=== PATIENT | female | born 1940 | race Caucasian/White ===

== ENCOUNTER 2017-03-26 15:20 | Outpatient (CLI) | payer MEDICARE, OTHER | END 2017-03-26 15:21 | disposition home or self-care (01) | LOC: LAB 15:20 | PROVIDERS: ATTEND Nurse Anesthetist, Certified Registered | DX: M65.342 Trigger finger, left ring finger (principal) | CPT/HCPCS: 87640 ==

== ENCOUNTER 2017-03-31 09:38 | Day surgery (SDC) | payer MEDICARE, OTHER ==
[2017-03-31] MEDS ORDERED: ceFAZolin 2 GM/50 ML 50 ML IV ONE (10:13)
[2017-03-31] MEDS ORDERED: LACTATED RINGERS 1,000 ML IV ONE (10:39)
[2017-03-31] MEDS ORDERED: LIDOCAINE-MPF 2% 5 ML VIAL IM ONE (12:00)
[2017-03-31] MEDS ORDERED: PROPOFOL 200 MG/20 ML VIAL IVP ONE (12:00)
[2017-03-31] MEDS ORDERED: MIDAZOLAM 2 MG/2 ML VIAL IVP ONE (12:00)
[2017-03-31] MEDS ORDERED: fentaNYL 100 MCG/2 ML VIAL IVP ONE (12:00)
[2017-03-31] MEDS ORDERED: BUPIVACAINE 0.25% PF 30 ML VIAL SUBQ ONE (12:57)
[2017-03-31 14:09] VITALS: BP 146/51
--- NOTE | 2017-04-15 23:22 | OPERATIVE REPORT ---
DATE OF SURGERY: 03/31/2017 00:00:00 PREOPERATIVE DIAGNOSIS: Left ring finger trigger. POSTOPERATIVE DIAGNOSIS: Left ring finger trigger. PROCEDURE: Left ring finger trigger release. SURGEON: Reed Ogden MD COLLAR TURNER: None. ANESTHESIA: MAC plus local. FINDINGS: Same. COMPLICATIONS: A small skin tear over the fragile skin on the left elbow upon removing the adhesive on the U-shaped drape. This was dressed with a Xeroform and gauze covering. There was minimal blood loss. ESTIMATED BLOOD LOSS: Minimal. TOURNIQUET: Esmarch to the left arm for 12 minutes. SPECIMEN REMOVED AND CULTURES: None. FLUIDS: 600 mL of Lactated Ringer's. CONDITION AT END OF PROCEDURE: Stable. DISPOSITION: PACU, then home. INDICATIONS: This is a patient with a longstanding history of left ring finger triggering. She had previously had a trigger release done on another finger on her other hand and had undergone injection s and did not want to go through any further injections. We elected to bring her to the operating ro om for a short procedure to release the A1 vini on her left ring finger. Options were discussed with the patient, risks and complications were detailed, questions were answer ed, and no guarantees were made. PROCEDURE IN DETAIL: After consent and identification, the patient was brought to the operating room and placed in a supine position on the operating table. After induction of a MAC anesthesia with lo liu anesthetic injected as a digital block to the left ring finger for a total of 10 mL, we used an E smarch bandage to exsanguinate the left upper extremity from the hand to the elbow. The Esmarch band age was rolled back to mid forearm. After an appropriate timeout was conducted, we supinated the lef t hand and extended the left fingers. We mapped out an oblique incision extending from distal radial to proximal ulnar, just proximal to the flexor crease at the metacarpophalangeal joint. The incision was made with a #15 blade scalpel through the skin and subcutaneous fat. Ragnell retrac tors were used to retract the fat. This allowed us to identify the A1 vini. We used a careful swe eping movement with the #15 blade scalpel to transect the A1 vini, just releasing the undersurface of the A1 vini. We explored the tendon sheath and flexed and extended the finger several times to note that there was no further triggering, and no significant cyst was encountered. We irrigated the wound and closed it with a running interlocked 4-0 nylon suture. Xeroform was appli ed to the wound, followed by a fluff, Kerlix, and bulky hand dressing overwrapped with an MARIA T bandage to the left hand. The Esmarch was rolled back to the elbow to release the tourniquet, and the finge rs pinked up nicely. At this point, while attempting to remove the drapes, the adhesive of the U-drape caused a small skin tear superficially to the dermis of the left elbow with a very scant amount of bleeding. We dressed the skin tear with Xeroform gauze and a 4 x 4 with tape. On completion of the procedure, the patient was transferred to the recovery room in good condition, h aving tolerated the procedure well. JOB #: [id number] EXT JOB #:[id number]
== END 2017-03-31 09:39 | disposition home or self-care (01) ==
LOC: SDS 09:38
PROVIDERS: ATTEND Orthopaedic Surgery
PROC: 0LN80ZZ Release Left Hand Tendon, Open Approach (ICD-10-PCS; principal; 2017-03-31 11:15)
DX: M65.342 Trigger finger, left ring finger (principal); E03.9 Hypothyroidism, unspecified; M19.90 Unspecified osteoarthritis, unspecified site; I10 Essential (primary) hypertension; Z87.891 Personal history of nicotine dependence; Z79.82 Long term (current) use of aspirin; Z90.710 Acquired absence of both cervix and uterus; Z96.642 Presence of left artificial hip joint
CPT/HCPCS: 26055; J0690; J7120

== ENCOUNTER 2017-11-11 17:06 | Emergency (ER) | payer MEDICARE, OTHER ==
[2017-11-11 17:18] VITALS: BP 147/78
--- NOTE | 2017-11-11 17:55 | XRAY Report ---
EXAM: RIGHT WRIST RADIOGRAPHY EXAM DATE: 11/11/2017 05:42 PM. CLINICAL HISTORY: Trauma. COMPARISON: None. TECHNIQUE: 4 views. FINDINGS: Bones: Transverse fracture of the distal radius metaphysis without significant malalignment. No defin ite additional fracture. Bones are osteopenic. Irregularity of distal scaphoid is likely degenerative . Joints: Carpal alignment is preserved. 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 Soft Tissues: Mild soft tissue swelling. IMPRESSION: Nondisplaced distal radius fracture. Osteopenia. Irregularity of distal scaphoid is likel y degenerative, less likely a fracture. [facility] Referring Provider Line: [phone] SITE ID: [id number]
--- NOTE | 2017-11-11 18:39 | ED Physician Documentation ---
PD HPI UPPER EXT INJURY - Stated complaint Stated Complaint: R WRIST PAIN - Chief complaint Chief Complaint: Trauma Ext - History obtained from History obtained from: Patient - History of Present Illness Location: Right, Wrist Type of injury: Fall Where injury occurred: Home Timing - onset: Today Timing - duration: Hours Timing - details: Abrupt onset, Still present Improved by: Rest, Immobilization Worsened by: Moving, Palpating Associated symptoms: Swelling. No: Weakness, Numbness, Tingling Similar symptoms before: Has not had sx before Recently seen: Other - Additonal information Additional information: 77-year-old female who went to the dentist today to have her teeth worked on when she got home she took off her coat and she fell in her home. She has injured her right wrist. She states that she is able to flex and extend but has pain with that. She does not have pain in the elbow she does have pain in her shoulder which is was present previously. Review of Systems Constitutional: denies: Fever Eyes: denies: Decreased vision Ears: denies: Ear pain Nose: denies: Congestion Throat: reports: Dental pain / toothache. denies: Sore throat Cardiac: denies: Chest pain / pressure, Palpitations Respiratory: denies: Dyspnea, Cough GI: denies: Abdominal Pain, Nausea, Vomiting : denies: Dysuria, Frequency Skin: denies: Rash Musculoskeletal: reports: Extremity pain, Joint pain, Joint swelling. denies: Neck pain, Back pain PD PAST MEDICAL HISTORY - Past Medical History Cardiovascular: Hypertension Respiratory: None Neuro: None Endocrine/Autoimmune: HyPOthyroidism GI: None POWER SWEEPER OPERATOR: None : None HEENT: Chronic vision loss, Chronic hearing loss Psych: None Musculoskeletal: Osteoarthritis Derm: None - Past Surgical History Past Surgical History: Yes General: Gastric surgery Ortho: Hip replacement, Other /POWER SWEEPER OPERATOR: section, Dilation and currettage, Hysterectomy HEENT: Tonsil/Adenoidectomy - Present Medications Home Medications: Ambulatory Orders Medication Instructions Recorded Confirmed Glucosamine Sulfate Dipot Chlr 2,000 mg ORAL DAILY 02/06/14 11/11/17 [Glucosamine] Levothyroxine [Synthroid] 112 mcg ORAL DAILY 02/06/14 11/11/17 Magnesium Oxide [Magox 400] 400 mg ORAL DAILY 02/06/14 11/11/17 Furosemide [Lasix] 10 mg PO DAILY 04/30/14 11/11/17 Calcium Carbonate/Vitamin D3 600 mg PO DAILY 03/24/16 11/11/17 [Calcium 500-Vit D3 600 Tablet] Ferrous Fumarate 324 mg PO DAILY 03/24/16 11/11/17 Acetaminophen [Tylenol Extra 1,000 mg PO DAILY 03/25/17 11/11/17 Strength] Aspirin [Adult Low Dose Aspirin EC] 81 mg PO DAILY 03/25/17 11/11/17 Naproxen Sodium [Aleve] 2 tab PO BID 03/25/17 11/11/17 [place]-3/Dha/Epa/Fish Oil [Fish Oil 1 cap PO DAILY 03/25/17 11/11/17 1,000 mg Softgel] Propranolol [Inderal] 40 mg PO BID 03/25/17 11/11/17 HYDROcod/ACETAM 5/325 [Hitchins 5/325] 1 - 2 ea PO Q6H PRN #15 tablet 11/11/17 - Allergies Allergies/Adverse Reactions: Allergies Allergy/AdvReac Type Severity Reaction Status Date / Time No Known Drug Allergies Allergy Verified 03/24/16 22:04 - Social History Does the pt smoke?: No Smoking Status: Never smoker Does the pt drink ETOH?: Yes Does the pt have substance abuse?: No - Immunizations Immunizations are current?: Yes PD ED PE NORMAL - Vitals Vital signs reviewed: Yes (hypertensive ) - General General: Alert and oriented X 3, No acute distress, Well developed/nourished - HEENT HEENT: Atraumatic, PERRL, EOMI - Respiratory Respiratory: No respiratory distress - Derm Derm: Normal color, Warm and dry, No rash - Extremities Extremities: No deformity, Other (There is swelling and point tenderness to the dorsum of the right wrist. Flexion and extension is preserved but with pain. distal n/v is intct. ) - Neuro Neuro: Alert and oriented X 3, No motor deficit, No sensory deficit, Normal speech Eye Opening: Spontaneous Motor: Obeys Commands Verbal: Oriented GCS Score: 15 - Psych Psych: Normal mood, Normal affect Results - Vitals Vitals: Vital Signs - 24 hr 11/11/17 17:15 Temperature 36.9 C Heart Rate 65 Respiratory 20 Rate Blood Pressure 147/78 H O2 Saturation 99 Oxygen O2 Source Room air - Rads (name of study) right wrist. Radiology: Prelim report reviewed (Impression: Nondisplaced distal radius fracture. Osteopenia. Irregularity of distal scaphoid is likely degenerative, less likely a fracture.), EMP read indepedently, See rad report Procedures - Splint (location) right wrist Splint applied by: Tech Type of splint: Fiberglass, Volar cock up Other: Patient tolerated well, No complications, Neurovascular intact, Good alignment PD MEDICAL DECISION MAKING - ED course Complexity details: reviewed results, re-evaluated patient, considered differential, d/w patient ED course: 77-year-old female with a nondisplaced radial fracture is placed into a splint will have follow-up with her orthopedic doctor next week. Departure - Departure Disposition: Home, Self Care Clinical Impression: Radius distal fracture Qualifiers: Encounter type: initial encounter Fracture type: closed Fracture morphology: other fracture Laterality: right Qualified Code(s): S52.591A - Other fractures of lower end of right radius, initial encounter for closed fracture Condition: Stable Instructions: ED Fx Colles Wrist No Redu Requ Follow-Up: Radha Randolph MD [Primary Care Provider] - Prescriptions: HYDROcod/ACETAM 5/325 [Hitchins 5/325] 1 - 2 ea PO Q6H PRN #15 tablet PRN Reason: Pain Comments: Follow-up with her orthopedic DrLinden on Friday as planned. You will need a cast placed on this wrist.
[2017-11-11] MEDS ORDERED: HYDROcod/ACETAM 5/325 MG TABLET PO STA (19:06)
== END 2017-11-11 19:09 | disposition home or self-care (01) ==
LOC: ED 17:06
DX: S52.591A Other fractures of lower end of right radius, initial encounter for closed fracture (principal); W19.XXXA Unspecified fall, initial encounter; Y92.009 Unspecified place in unspecified non-institutional (private) residence as the place of occurrence of the external cause; I10 Essential (primary) hypertension; Z79.82 Long term (current) use of aspirin
CPT/HCPCS: 29125; 73110; 99283; A9270

== ENCOUNTER 2018-05-28 08:00 | Outpatient (CLI) | payer MEDICARE, OTHER ==
[2018-05-28 13:00] LABS: BASOPHILS % (AUTO) 0.6 %; EOSINOPHILS # (AUTO) 0.1 10^3/uL (0.0-0.7); EOSINOPHILS % (AUTO) 1.1 %; HGB - HEMOGLOBIN 11.3 g/dL (12.0-16.0); LYMPHOCYTES # (AUTO) 1.4 10^3/uL (1.5-3.5); LYMPHOCYTES % (AUTO) 16.7 %; MEAN CORPUSCULAR HEMOGLOBIN 33.5 pg (27.0-31.0); MEAN CORPUSCULAR HGB CONC 32.4 g/dL (32.0-36.0); MEAN CORPUSCULAR VOLUME 103.2 fL (81.0-99.0); MEAN PLATELET VOLUME 9.7 fL (7.9-10.8); MONOCYTES # (AUTO) 0.7 10^3/uL (0.0-1.0); MONOCYTES % (AUTO) 8.4 %; NEUTROPHILS # (AUTO) 6.1 10^3/uL (1.5-6.6); NEUTROPHILS % (AUTO) 73.2 %; PLT - PLATELET COUNT 289 10^3/uL (130-450); RED BLOOD COUNT 3.38 10^6/uL (4.20-5.40); RED CELL DISTRIBUTION WIDTH 13.6 % (12.0-15.0); WHITE BLOOD COUNT 8.3 x10^3/uL (4.8-10.8)
[2018-05-28 13:19] LABS: ALBUMIN 3.1 g/dL (3.2-5.5); ALBUMIN/GLOBULIN RATIO 0.9 (1.0-2.2); ALKALINE PHOSPHATASE 229 IU/L (42-121); ALT ALANINE AMINOTRANSFERASE 22 IU/L (10-60); AST ASPARTATE AMINOTRANSFERASE 25 IU/L (10-42); BILIRUBIN,TOTAL 0.6 mg/dL (0.2-1.0); BUN - BLOOD UREA NITROGEN 16 mg/dL (6-20); CALCIUM 8.3 mg/dL (8.5-10.3); CARBON DIOXIDE - CO2 23 mmol/L (21-32); CHLORIDE 106 mmol/L (101-111); CHOLESTEROL 162 mg/dL; CREATININE 0.5 mg/dL (0.4-1.0); GFR - MDRD 120 (>89); GLUCOSE 79 mg/dL (70-100); HDL CHOLESTEROL 81 mg/dL; LDL CHOLESTEROL,CALCULATED 62 mg/dL; LDL/HDL RATIO 0.8 (<4.4); SODIUM 136 mmol/L (135-145); TOTAL PROTEIN 6.5 g/dL (6.7-8.2); VLDL CHOLESTEROL 19 mg/dL
== END 2018-05-28 08:01 | disposition home or self-care (01) ==
LOC: LAB.WCP 08:00
PROVIDERS: ATTEND Family Medicine
DX: I10 Essential (primary) hypertension (principal); R74.8 Abnormal levels of other serum enzymes; E78.5 Hyperlipidemia, unspecified; E03.9 Hypothyroidism, unspecified
CPT/HCPCS: 36415; 80053; 80061; 83721; 84443; 85025

== ENCOUNTER 2018-06-04 08:28 | Outpatient (CLI) | payer MEDICARE, OTHER | END 2018-06-04 08:29 | disposition home or self-care (01) | LOC: LAB.WCP 08:28 | PROVIDERS: ATTEND Family Medicine | DX: R74.8 Abnormal levels of other serum enzymes (principal) | CPT/HCPCS: 36415; 84075; 84080 ==

== ENCOUNTER 2018-06-07 21:51 | Emergency (ER) | payer MEDICARE, OTHER ==
--- NOTE | 2018-06-07 22:09 | ED Physician Documentation ---
PD HPI BACK INJURY - Stated complaint Stated Complaint: BACK PX - History obtained from History obtained from: Patient, Family - History of Present Illness Type of injury: Fall Where injury occurred: Home Timing - onset: How many weeks ago (6) Timing - details: Abrupt onset Pain level now: 5 Quality: Pain Improved by: Rest Worsened by: Moving Associated symptoms: No: Fever, Weakness, Numbness, Incontinent of urine, Unable to urinate, Hematuria, Incontinent of stool Contributing factors: No: Anticoagulated Recently seen: Not recently seen - Additional information Additional information: fell 6 weeks ago when she was sitting down in a swivel chair; the chair unexpected swiveled as she was sitting down, causing her to fall to ground on her left side, c/o left lower back pain and left posterior bony pelvis pain. pain had been adequately controlled with aleve and tylenol but this is no longer effective Review of Systems Musculoskeletal: reports: Back pain. denies: Joint pain, Pain with weight bearing Neurologic: denies: Focal weakness, Numbness, Head injury PD PAST MEDICAL HISTORY - Past Medical History Past Medical History: Yes Cardiovascular: Hypertension Respiratory: None Endocrine/Autoimmune: HyPOthyroidism GI: None GEOTECHNICAL ENGINEER: None : None HEENT: Chronic vision loss, Chronic hearing loss Psych: None Musculoskeletal: Osteoarthritis Derm: None - Past Surgical History Past Surgical History: Yes General: Gastric surgery Ortho: Hip replacement, Other /GEOTECHNICAL ENGINEER: section, Dilation and currettage, Hysterectomy HEENT: Tonsil/Adenoidectomy - Present Medications Home Medications: Ambulatory Orders Medication Instructions Recorded Confirmed Glucosamine Sulfate Dipot Chlr 2,000 mg ORAL DAILY 02/06/14 06/07/18 [Glucosamine] Levothyroxine [Synthroid] 175 mcg ORAL DAILY 02/06/14 06/07/18 Magnesium Oxide [Magox 400] 400 mg ORAL DAILY 02/06/14 06/07/18 Furosemide [Lasix] 10 mg PO DAILY 04/30/14 06/07/18 Calcium Carbonate/Vitamin D3 600 mg PO DAILY 03/24/16 06/07/18 [Calcium 500-Vit D3 600 Tablet] Ferrous Fumarate 324 mg PO DAILY 03/24/16 06/07/18 Acetaminophen [Tylenol Extra 1,000 mg PO DAILY 03/25/17 06/07/18 Strength] Aspirin [Adult Low Dose Aspirin EC] 81 mg PO DAILY 03/25/17 06/07/18 Naproxen Sodium [Aleve] 2 tab PO BID 03/25/17 06/07/18 [place]-3/Dha/Epa/Fish Oil [Fish Oil 1 cap PO DAILY 03/25/17 06/07/18 1,000 mg Softgel] Propranolol [Inderal] 40 mg PO BID 03/25/17 06/07/18 oxyCODONE [Roxicodone] 5 - 10 mg PO Q6H PRN #14 tablet 06/07/18 - Allergies Allergies/Adverse Reactions: Allergies Allergy/AdvReac Type Severity Reaction Status Date / Time No Known Drug Allergies Allergy Verified 06/07/18 21:57 - Social History Does the pt smoke?: No Smoking Status: Never smoker Does the pt drink ETOH?: Yes Does the pt have substance abuse?: No - Immunizations Immunizations are current?: Yes PD ED PE NORMAL - Vitals Vital signs reviewed: Yes - General General: Alert and oriented X 3, No acute distress (NAD at rest, pain with movement involving lower back), Well developed/nourished - Back Back: No CVA TTP, No spinal TTP (no midline tenderness. mild left paralumbar tenderness to palpation ) - Derm Derm: Normal color, Warm and dry, No rash - Extremities Extremities: No tenderness to palpate, Normal ROM s pain, No edema - Neuro Neuro: Alert and oriented X 3, No motor deficit, No sensory deficit Results - Vitals Vitals: Vital Signs - 24 hr 06/07/18 06/07/18 21:55 23:33 Temperature 35.8 C L Heart Rate 65 77 Respiratory 18 19 Rate Blood Pressure 172/62 H 191/86 H O2 Saturation 100 98 Oxygen O2 Source Room air - Rads (name of study) pelvis xray Radiology: Prelim report reviewed, See rad report lumbar spine xrays Radiology: Prelim report reviewed, See rad report PD MEDICAL DECISION MAKING - ED course Complexity details: reviewed results, re-evaluated patient, considered differential, d/w patient, d/w family ED course: patient reported good relief with PO oxycodone and was subsequently able to ambulate with walker but without assistance - Sepsis Event Vital Signs: Vital Signs - 24 hr 06/07/18 06/07/18 21:55 23:33 Temperature 35.8 C L Heart Rate 65 77 Respiratory 18 19 Rate Blood Pressure 172/62 H 191/86 H O2 Saturation 100 98 Oxygen O2 Source Room air Departure - Departure Disposition: 01 Home, Self Care Clinical Impression: Low back pain Qualifiers: Chronicity: acute Back pain laterality: left Sciatica presence: without sciat ica Qualified Code(s): M54.5 - Low back pain Condition: Good Instructions: ED Low Back Pain Injury Follow-Up: Radha Randolph MD [Primary Care Provider] - Prescriptions: oxyCODONE [Roxicodone] 5 - 10 mg PO Q6H PRN #14 tablet PRN Reason: Pain Discharge Date/Time: 06/07/18 23:52
[2018-06-07] MEDS ORDERED: oxyCODONE 5 MG TABLET PO STA (22:20)
--- NOTE | 2018-06-07 23:05 | XRAY Report ---
Reason: fall, left low back/pelvis pain Procedure Date: 06/07/2018 Accession Number: [id number] / [id number] Procedure: XR - Pelvis 1 View CPT Code: FULL RESULT: EXAM: PELVIS RADIOGRAPHY EXAM DATE: 06/07/2018 10:51 PM. CLINICAL HISTORY: Fall, left low back/pelvis pain. COMPARISON: HIP 2 VIEW LT 02/06/2014 4:23 PM, LUMBAR SPINE 2 VIEW 06/07/2018 10:31 PM, ABDOMEN ACUTE 04/10/2014 8:05 AM. TECHNIQUE: 1 view. FINDINGS: Bones and Joints: Osteopenia without definite acute pelvic fracture seen. Left hip prosthesis appears unremarkable. Previous right proximal femur fracture repair. No malalignment. Soft Tissues: Normal. No soft tissue swelling. IMPRESSION: 1. Osteopenic pelvis without definite acute displaced fracture. MRI follow-up could be considered if clinically indicated. 2. Post left hip replacement and right proximal femur fracture repair. [facility]
--- NOTE | 2018-06-07 23:07 | XRAY Report ---
Reason: fall, left low back pain Procedure Date: 06/07/2018 Accession Number: [id number] / [id number] Procedure: XR - Lumbar Spine 2 View CPT Code: FULL RESULT: EXAM: LUMBOSACRAL SPINE RADIOGRAPHY EXAM DATE: 06/07/2018 10:51 PM. CLINICAL HISTORY: Fall, left low back pain. COMPARISONS: ABDOMEN ACUTE 04/10/2014 8:05 AM. TECHNIQUE: 2 views. FINDINGS: Alignment: Normal. No spondylolisthesis or scoliosis. Bones: Osteopenic lumbar spine. Multilevel mild to moderate compression deformities, worst at L1, are age indeterminate. These involve likely T12 through L4. No definitive acute fracture seen. Degenerative Changes: Mild diffuse disk level degenerative changes throughout the lumbar spine. Moderate lower lumbar facet DJD. Soft Tissues: Multiple previous abdominal surgeries. Atherosclerotic disease of the aorta. Bowel gas appears unremarkable. IMPRESSION: Multilevel mild to moderate compression deformities, worst at L1, are age indeterminate in this osteopenic patient. If there is clinical concern for acute fracture, a CT or MRI is suggested. [facility]
[2018-06-07 23:34] VITALS: BP 191/86
[2018-06-07] MEDS ORDERED: oxyCODONE/ACET 5/325 Prepack 4 PO STA (23:38)
== END 2018-06-07 23:52 | disposition home or self-care (01) ==
LOC: ED 21:51
DX: M54.5 Low back pain (principal); I10 Essential (primary) hypertension; Z79.82 Long term (current) use of aspirin; W18.39XA Other fall on same level, initial encounter; W22.8XXA Striking against or struck by other objects, initial encounter; Y92.008 Other place in unspecified non-institutional (private) residence as the place of occurrence of the external cause
CPT/HCPCS: 72100; 72170; 99283; A9270

== ENCOUNTER 2018-07-08 07:52 | Outpatient (CLI) | payer MEDICARE, OTHER ==
--- NOTE | 2018-07-08 15:00 | DEXA Report ---
Reason: OSTEOPOROSIS Procedure Date: 07/08/2018 Accession Number: [id number] / [id number] Procedure: DEX - Dexa Spine and/or Hip CPT Code: FULL RESULT: EXAM: Dexa Spine and/or Hip, Dexa Forearm DATE: 07/08/2018 8:24 AM CLINICAL HISTORY: OSTEOPOROSIS TECHNIQUE: Dual energy x-ray absorptiometry (DXA) was performed on a [employer] System. Regions measured are the AP Spine, femoral neck, and if needed forearm. COMPARISON: None. In accordance with the International Society for Clinical Densitometry (ISCD) guidelines, data from previous exams may be reanalyzed using current recommendations and techniques. This is done to allow a more accurate basis for comparison with the current study. FINDINGS: The data for the lumbar spine is as follows: BMD (g/cm/cm) T-SCORE Z-SCORE REGION L1 0.977 -1.3 0.5 L2 0.870 -2.8 -0.9 L3 0.810 -3.2 -1.4 L4 0.976 -1.9 0.0 TOTAL 0.906 -2.3 -0.5 NOTE: All evaluable vertebrae are used for classification The data for the Left forearm is as follows: BMD (g/cm/cm) T-SCORE Z-SCORE REGION 1/3 0.320 -6.3 -4.0 NOTE: The 33% radius of the nondominant forearm is used for classification. IMPRESSION: THE WHO CLASSIFICATION BASED ON THE INTERNATIONAL REFERENCE STANDARD IS OSTEOPOROSIS. THE FRACTURE RISK IS HIGH. RECOMMENDATION: Patients with diagnosis of osteoporosis or osteopenia should have regular bone mineral density assessment. For those eligible for Medicare, routine testing is allowed once every 2 years. Testing frequency can be increased for patients who have rapidly progressing disease or for those who are receiving medical therapy to restore bone mass. COMMENT: World Health Organization (WHO) definitions for osteoporosis and osteopenia: NORMAL BMD: T-score at -1.0 or higher, fracture risk is low OSTEOPENIA BMD: T-score between -1.0 and -2.5, fracture risk is increased. OSTEOPOROSIS BMD: T-score at -2.5 or lower, fracture risk is high. National Osteoporosis Foundation recommends: 1. Obtain adequate dietary calcium (at least 1200 mg per day) and vitamin D (400-800 international units per day). 2. Participate, as appropriate, in regular weightbearing and muscle-strengthening exercise. 3. Avoid tobacco use and reduce alcohol and caffeine intake. 4. For more detailed information see the website at www.NOF.org.
--- NOTE | 2018-07-08 16:03 | MRI Report ---
Reason: OSTEOPOROSIS, COLLAPSED VERTEBRA, LEG WEAKNESS, BA Procedure Date: 07/08/2018 Accession Number: [id number] / [id number] Procedure: MRI - Lumbar Spine W/O CPT Code: FULL RESULT: EXAM: MRI LUMBAR SPINE WITHOUT CONTRAST EXAM DATE: 07/08/2018 09:04 AM. CLINICAL HISTORY: Osteoporosis, collapsed vertebra, leg weakness. COMPARISON: Radiograph 06/07/2018. TECHNIQUE: Multiplanar, multisequence T1-weighted and fluid-sensitive sequences of the lumbar spine from T12 to S1 without contrast. Other: None. FINDINGS: Spinal Canal: The conus terminates at L1. The conus medullaris and cauda equina are unremarkable. Alignment: No scoliosis or spondylolisthesis. Bone Marrow: Five [id number] lumbar vertebral bodies are assumed. The patient has a 2-column burst fracture of the L1 vertebral body that is either acute or subacute. There is edema and a large fluid cleft through the middle of the vertebral body. Roughly 40% height loss is demonstrated throughout the vertebral body. Type I endplate changes at the inferior portion of T12. There is also an acute 2-column burst fracture of the L2 vertebral body with 25% height loss. Retropulsion of the posterior superior corner measures 5 mm. Disk Levels/Facets: T9-T10: The disk is desiccated. Anterior syndesmophyte formation is present. T10-T11: Anterior syndesmophyte formation is present. T11-T12: Unremarkable. T12-L1: The disk is desiccated. L1-L2: Retropulsion of the posterior-superior portion of L2 causes mild spinal canal narrowing. L2-L3: The disk is desiccated. Small left foraminal area protrusion causes minimal left foraminal narrowing. L3-L4: The disk is desiccated with moderate height loss. A broad-based posterior disk/osteophyte complex, mild ligamentum flavum hypertrophy, and mild facet hypertrophy cause moderate spinal canal, mild right foraminal, and minimal left foraminal narrowing. L4-L5: The disk is desiccated. A broad-based posterior disk protrusion, severe ligamentum flavum hypertrophy, and severe bilateral facet hypertrophy cause moderate spinal canal and mild bilateral foraminal narrowing. L5-S1: Foraminal area disk/osteophyte complexes cause minimal right and mild left foraminal narrowing. Musculature: Moderate posterior paraspinal muscle fatty atrophy is present. Other: The partially visualized retroperitoneum is unremarkable. IMPRESSION: 1. Acute or subacute 2-column burst fracture of the L1 vertebral body with 40% height loss. 2. Acute 2-column burst fracture of the L2 vertebral body with 25% height loss and retropulsion by 5 mm. 3. Mild spinal canal narrowing at L1-L2 due to retropulsion of L2. 4. Moderate spinal canal and mild right foraminal narrowing at L3-L4 due to disk and posterior element degenerative changes. 5. Moderate spinal canal and mild bilateral foraminal narrowing at L4-L5 due to disk and posterior element degenerative changes. 6. Mild left foraminal narrowing at L5-S1 due to disk/osteophyte complex. Comment: The following findings are so common in adults without low back pain that while we report their presence, they must be interpreted with caution and in the context of the clinical situation. (Reference Lisandrak et al, Spine 2001) Prevalence of findings in patients without low back pain: Disk degeneration (any evidence): 92% Disk desiccation/T2 signal loss: 83% Disk height loss: 56% Disk bulge: 64% Disk protrusion: 32% Annular tear/high intensity zone: 38% [facility]
--- NOTE | 2018-07-09 06:42 | DEXA Report ---
Reason: SCREENING OSTEOPOROSIS Procedure Date: 07/08/2018 Accession Number: [id number] / [id number] Procedure: DEX - Dexa Forearm CPT Code: FULL RESULT: EXAM: Dexa Spine and/or Hip, Dexa Forearm DATE: 07/08/2018 8:24 AM CLINICAL HISTORY: OSTEOPOROSIS TECHNIQUE: Dual energy x-ray absorptiometry (DXA) was performed on a [employer] System. Regions measured are the AP Spine, femoral neck, and if needed forearm. COMPARISON: None. In accordance with the International Society for Clinical Densitometry (ISCD) guidelines, data from previous exams may be reanalyzed using current recommendations and techniques. This is done to allow a more accurate basis for comparison with the current study. FINDINGS: The data for the lumbar spine is as follows: BMD (g/cm/cm) T-SCORE Z-SCORE REGION L1 0.977 -1.3 0.5 L2 0.870 -2.8 -0.9 L3 0.810 -3.2 -1.4 L4 0.976 -1.9 0.0 TOTAL 0.906 -2.3 -0.5 NOTE: All evaluable vertebrae are used for classification The data for the Left forearm is as follows: BMD (g/cm/cm) T-SCORE Z-SCORE REGION 1/3 0.320 -6.3 -4.0 NOTE: The 33% radius of the nondominant forearm is used for classification. IMPRESSION: THE WHO CLASSIFICATION BASED ON THE INTERNATIONAL REFERENCE STANDARD IS OSTEOPOROSIS. THE FRACTURE RISK IS HIGH. RECOMMENDATION: Patients with diagnosis of osteoporosis or osteopenia should have regular bone mineral density assessment. For those eligible for Medicare, routine testing is allowed once every 2 years. Testing frequency can be increased for patients who have rapidly progressing disease or for those who are receiving medical therapy to restore bone mass. COMMENT: World Health Organization (WHO) definitions for osteoporosis and osteopenia: NORMAL BMD: T-score at -1.0 or higher, fracture risk is low OSTEOPENIA BMD: T-score between -1.0 and -2.5, fracture risk is increased. OSTEOPOROSIS BMD: T-score at -2.5 or lower, fracture risk is high. National Osteoporosis Foundation recommends: 1. Obtain adequate dietary calcium (at least 1200 mg per day) and vitamin D (400-800 international units per day). 2. Participate, as appropriate, in regular weightbearing and muscle-strengthening exercise. 3. Avoid tobacco use and reduce alcohol and caffeine intake. 4. For more detailed information see the website at www.NOF.org.
== END 2018-07-08 07:53 | disposition home or self-care (01) ==
LOC: DI 07:52
PROVIDERS: ATTEND Family Medicine
DX: M81.0 Age-related osteoporosis without current pathological fracture (principal); S32.011A Stable burst fracture of first lumbar vertebra, initial encounter for closed fracture; S32.021A Stable burst fracture of second lumbar vertebra, initial encounter for closed fracture; M51.36 Other intervertebral disc degeneration, lumbar region; M47.9 Spondylosis, unspecified; M51.26 Other intervertebral disc displacement, lumbar region; M48.061 Spinal stenosis, lumbar region without neurogenic claudication; M51.34 Other intervertebral disc degeneration, thoracic region
CPT/HCPCS: 72148; 77080; 77081

== ENCOUNTER 2018-08-03 08:54 | Emergency (ER) | payer MEDICARE, OTHER ==
[2018-08-03] MEDS ORDERED: ACETAMINOPHEN 325 MG TABLET PO STA (09:24)
--- NOTE | 2018-08-03 10:05 | ED Physician Documentation ---
History of Present Illness - Stated complaint Stated Complaint: GLF/HEAD INJURY RT SIDE PX - Chief complaint Chief Complaint: General - Additonal information Additional information: hx from pt 78 female on asa no blood thinners chronic RLE swelling and pain was at rehab this AM and caught her foot on leslie and fell onto her right side large hematoma to R jew denies LOC denies neck pain severe R shoulder pain large skin tear to R elbow hip thigh knee painter all painful and swollen but same as normal and not injured per pt her ankle and foot were injured as well no CP or AP Review of Systems Constitutional: denies: Fever, Chills Cardiac: denies: Chest pain / pressure Respiratory: denies: Dyspnea GI: denies: Abdominal Pain Skin: reports: Abrasion (s) Musculoskeletal: reports: Extremity pain, Joint pain. denies: Neck pain Neurologic: reports: Headache, Head injury. denies: Generalized weakness, Focal weakness, Numbness Endocrine: denies: Easy bruising / bleeding Immunocompromised: denies: Immunocompromised PD PAST MEDICAL HISTORY - Past Medical History Past Medical History: Yes Cardiovascular: Hypertension Respiratory: None Endocrine/Autoimmune: HyPOthyroidism GI: None HUMAN RESOURCE OFFICER: None : None HEENT: Chronic vision loss, Chronic hearing loss Psych: None Musculoskeletal: Osteoarthritis Derm: None - Past Surgical History Past Surgical History: Yes General: Gastric surgery Ortho: Hip replacement, Other /HUMAN RESOURCE OFFICER: section, Dilation and currettage, Hysterectomy HEENT: Tonsil/Adenoidectomy - Present Medications Home Medications: Ambulatory Orders Medication Instructions Recorded Confirmed Glucosamine Sulfate Dipot Chlr 2,000 mg ORAL DAILY 02/06/14 08/03/18 [Glucosamine] Levothyroxine [Synthroid] 175 mcg ORAL DAILY 02/06/14 08/03/18 Magnesium Oxide [Magox 400] 400 mg ORAL DAILY 02/06/14 08/03/18 Calcium Carbonate/Vitamin D3 600 mg PO DAILY 03/24/16 08/03/18 [Calcium 500-Vit D3 600 Tablet] Ferrous Fumarate 324 mg PO DAILY 03/24/16 08/03/18 Acetaminophen [Tylenol Extra 1,000 mg PO DAILY 03/25/17 08/03/18 Strength] Aspirin [Adult Low Dose Aspirin EC] 81 mg PO DAILY 03/25/17 08/03/18 Naproxen Sodium [Aleve] 2 tab PO BID 03/25/17 08/03/18 Wickes-3/Dha/Epa/Fish Oil [Fish Oil 1 cap PO DAILY 03/25/17 08/03/18 1,000 mg Softgel] Propranolol [Inderal] 40 mg PO BID 03/25/17 08/03/18 oxyCODONE [Roxicodone] 2.5 mg PO Q6H PRN #10 tablet 08/03/18 - Allergies Allergies/Adverse Reactions: Allergies Allergy/AdvReac Type Severity Reaction Status Date / Time No Known Drug Allergies Allergy Verified 08/03/18 09:19 - Social History Does the pt smoke?: No Smoking Status: Never smoker Does the pt drink ETOH?: Yes Does the pt have substance abuse?: No - Immunizations Immunizations are current?: Yes PD ED PE NORMAL - Vitals Vital signs reviewed: Yes - General General: Alert and oriented X 3 - HEENT HEENT: PERRL. No: Atraumatic (large R jew hematoma) - Neck Neck: No bony TTP (but will imnage 2/2 age mechanism and distracting injuries) - Cardiac Cardiac: RRR - Respiratory Respiratory: No respiratory distress, Clear bilaterally - Abdomen Abdomen: Soft, Non tender - Derm Derm: Other (large skin tear to RUE, brusing to R jew) - Extremities Extremities: Other (TTP superiro right shoulder and limited ROM, rest if humerus, elbow, FA wrist hand NT and s deformity but large skin tear, MSV intact. R hip NT and able to range, thigh and leg swollen and TTP but pt states thius is normal for her and not new and not related her fall, ankle and foot dif fusely TTP no gross defrmity, MSV intact) Results - Vitals Vitals: Vital Signs - 24 hr 08/03/18 08/03/18 09:04 10:00 Temperature 37.0 C Heart Rate 72 72 Respiratory 18 18 Rate Blood Pressure 180/76 H 180/72 H O2 Saturation 18 L Oxygen O2 Source Room air - Rads (name of study) CTH Radiology: See rad report (STS no fx or ICH) CT CS Radiology: See rad report (no acute) shoulder Radiology: See rad report (distal clavicle fx and AC sep) foot Radiology: See rad report (neg) ankle Radiology: See rad report (non displaced trimall) Procedures - Splint (location) RLE Splint applied by: Tech Type of splint: Fiberglass, Short leg, Posterior, Stirrup Other: Patient tolerated well, No complications, Neurovascular intact PD MEDICAL DECISION MAKING - ED course ED course: CTH CS neg but clavicle fx and ankle fx cannot transfer or ambulate lives with family but they work for 8 hr a day met with RAIMUNDO pt merits respite care with PT services and [facility] is able to provide this service and family can pay for it safe to transfer POV if ER staff get pt in car and [facility] assist her out Departure - Departure Disposition: 01 Home, Self Care Clinical Impression: Skin tear Ankle fracture Qualifiers: Encounter type: initial encounter Fracture type: closed Laterality: right Qualified Code(s): S82.891A - Other fracture of right lower leg, initial encounter for closed fracture Clavicle fracture Qualifiers: Encounter type: initial encounter Clavicle location: lateral end Fracture type: closed Fracture alignment: nondisplaced Laterality: right Qualified Code(s): S42.034A - Nondisplaced fracture of lateral end of right clavicle, initial encounter for closed fracture AC separation Qualifiers: Encounter type: initial encounter Laterality: right Qualified Code(s): S43.101A - Unspecified dislocation of right acromioclavicular joint, initial encounter Head injury Qualifiers: Encounter type: initial encounter Qualified Code(s): S09.90XA - Unspecified injury of head, initial encounter Condition: Good Instructions: ED Fx Clavicle, ED Head Injury Closed, ED Fx Ankle General, ED Avulsion Dermal Follow-Up: Radha Randolph MD [Primary Care Provider] - [facility] [Provider Group] Prescriptions: oxyCODONE [Roxicodone] 2.5 mg PO Q6H PRN #10 tablet PRN Reason: Severe Pain Comments: Thankfully the CT scan of your head and neck do not show any skull or spine fractures or brain bleeding. Please read the head injury precautions and have a responsible adult watch over you for the next 24 hr Ice wrapped in a towel for 20 minutes at a time to decrease swelling But you did break your collarbone and ankle Unfortunately that means you cannot get around on your own. So we have arranged for you to go to [facility] for respite care and physical therapy Wear the splint at all times Elevate he leg as often as possible Apply ice through the splint for 20 minutes at a time No weight bearing at all on the right leg For the collarbone injury, wear the sling as needed but please do some range of motion every day to prevent scar tissue and shoulder freezing Tylenol for mild to moderate pain Oxycodone for severe pain only (may cause drowsiness and constipation and can be addictive) Please call orthopedics to schedule follow up. The mepital dressing can stay on for 10 days to hold the skin in place - you can still wash the arm and apply antibiotic ointment through the dressing Return if worse in any way
--- NOTE | 2018-08-03 10:35 | XRAY Report ---
Reason: fall Procedure Date: 08/03/2018 Accession Number: [id number] / [id number] Procedure: XR - Ankle 3 View RT CPT Code: FULL RESULT: EXAM: RIGHT ANKLE RADIOGRAPHY EXAM DATE: 08/03/2018 09:45 AM. CLINICAL HISTORY: Fall. COMPARISON: None. TECHNIQUE: 3 views. FINDINGS: Bones are qualitatively markedly osteopenic, decreasing diagnostic ability. There is widening of the ankle mortise, the medial and posterior tibial malleolus are fractured, minimal displacement. IMPRESSION: Trimalleolar fracture. [facility] CRITICAL RESULT: The findings were discussed with Dr. Day on 08/03/2018 at 10:30 AM.
--- NOTE | 2018-08-03 10:35 | XRAY Report ---
Reason: fall Procedure Date: 08/03/2018 Accession Number: [id number] / [id number] Procedure: XR - Foot 3 View RT CPT Code: FULL RESULT: EXAM: RIGHT FOOT RADIOGRAPHY EXAM DATE: 08/03/2018 09:45 AM. CLINICAL HISTORY: Fall. COMPARISON: None. TECHNIQUE: 3 views. FINDINGS: Bones: Qualitatively markedly osteopenic, limiting diagnostic sensitivity. No fractures or bone lesions. Joints: No subluxations. Soft Tissues: Normal. No soft tissue swelling. IMPRESSION: No additional foot fracture is identified. For description of the identified ankle fracture, please see the separate report. [facility]
--- NOTE | 2018-08-03 10:40 | XRAY Report ---
Reason: fall Procedure Date: 08/03/2018 Accession Number: [id number] / [id number] Procedure: XR - Shoulder 3 View RT CPT Code: FULL RESULT: EXAM: RIGHT SHOULDER RADIOGRAPHY EXAM DATE: 08/03/2018 09:45 AM. CLINICAL HISTORY: Fall. COMPARISON: None. TECHNIQUE: 3 views. FINDINGS: Bones: Bones are markedly osteopenic. There is a Hill-Sachs deformity in the right humeral head, remote injury. Sclerosis is seen indicating end stage degenerative changes. There is a fracture of the distal clavicle and widening of the acromioclavicular joint. Joints: The glenohumeral joint is appropriately located. Soft tissues: The visualized hemithorax is unremarkable. No soft tissue swelling. IMPRESSION: Distal clavicular fracture and AC joint injury. [facility] CRITICAL RESULT: The findings were discussed with Dr. Day on 08/03/2018 at 10:40 AM.
--- NOTE | 2018-08-03 10:41 | CT Report ---
Reason: fall Procedure Date: 08/03/2018 Accession Number: [id number] / [id number] Procedure: CT - Head W/O Stroke Protocol CPT Code: FULL RESULT: EXAM: CT HEAD EXAM DATE: 08/03/2018 09:54 AM. CLINICAL HISTORY: Fall. COMPARISON: None. TECHNIQUE: Multiaxial CT images were obtained from the foramen magnum to the vertex. Reformats: Sagittal and coronal. IV contrast: None. In accordance with CT protocol optimization, one or more of the following dose reduction techniques were utilized for this exam: automated exposure control, adjustment of mA and/or KV based on patient size, or use of iterative reconstructive technique. FINDINGS: Parenchyma: No intraparenchymal hemorrhage. No evidence of mass, midline shift, or CT findings of acute infarction. Brown-white differentiation is distinct. Extraaxial Spaces: Normal for age. No subdural or epidural collections identified. Ventricles: Normal in size and position. Sinuses and Orbits: Imaged paranasal sinuses, orbits, and mastoids show no significant abnormality. Bones: No evidence of fracture or calvarial defect. Other: Superficial extracranial right frontal hematoma. IMPRESSION: Superficial soft tissue hematoma without acute intracranial abnormality. [facility]
--- NOTE | 2018-08-03 10:44 | CT Report ---
Reason: fall Procedure Date: 08/03/2018 Accession Number: [id number] / [id number] Procedure: CT - Cervical Spine W/O CPT Code: FULL RESULT: EXAM: CT CERVICAL SPINE WITHOUT CONTRAST DATE: 08/03/2018 09:54 AM. HISTORY: Fall. COMPARISONS: None. TECHNIQUE: Thin-section axial images were acquired of the cervical spine without contrast. Post-processing: Coronal and sagittal reformats. Other: None. In accordance with CT protocol optimization, one or more of the following dose reduction techniques were utilized for this exam: automated exposure control, adjustment of mA and/or KV based on patient size, or use of iterative reconstructive technique. FINDINGS: Alignment: No acute appearing spondylolisthesis or subluxation. Bones: No fracture or bone lesion. Marked multilevel degenerative changes including essentially complete loss of disk space height from C3 to C7. 2 mm of retrolisthesis of C3 on C4 felt to be degenerative in nature. Musculature: Normal. No fatty atrophy. Other: The paravertebral and prevertebral soft tissues are unremarkable. The lung apices are clear. IMPRESSION: No evidence of acute traumatic injury to the cervical spine. [facility]
[2018-08-03 13:50] VITALS: BP 166/74
== END 2018-08-03 13:50 | disposition home or self-care (01) ==
LOC: ED 08:54
DX: S51.011A Laceration without foreign body of right elbow, initial encounter (principal); S00.83XA Contusion of other part of head, initial encounter; S82.851A Displaced trimalleolar fracture of right lower leg, initial encounter for closed fracture; S42.034A Nondisplaced fracture of lateral end of right clavicle, initial encounter for closed fracture; S43.101A Unspecified dislocation of right acromioclavicular joint, initial encounter; W18.39XA Other fall on same level, initial encounter; Y93.89 Activity, other specified; Y92.538 Other ambulatory health services establishments as the place of occurrence of the external cause; I10 Essential (primary) hypertension
CPT/HCPCS: 70450; 72125; 73030; 73610; 73630; 99283; A9270

== ENCOUNTER 2018-08-21 10:38 | Outpatient (CLI) | payer MEDICARE, OTHER ==
--- NOTE | 2018-08-21 17:27 | CT Report ---
Reason: DISPLACED TRIMALLEOLAR FRACTURE OF RIGHT LOWER LEG Procedure Date: 08/21/2018 Accession Number: [id number] / [id number] Procedure: CT - Lower Extremity Right W/O CPT Code: FULL RESULT: EXAM: RIGHT ANKLE/HINDFOOT CT WITHOUT CONTRAST EXAM DATE: 08/21/2018 11:16 AM. CLINICAL HISTORY: Displaced trimalleolar fracture of right lower leg. COMPARISON: Radiographs 08/10/2018. TECHNIQUE: Thin-section axial images were acquired of the ankle/hindfoot without contrast. Post-processing: Coronal and sagittal reformats. Other: None. In accordance with CT protocol optimization, one or more of the following dose reduction techniques were utilized for this exam: automated exposure control, adjustment of mA and/or KV based on patient size, or use of iterative reconstructive technique. FINDINGS: Overlying cast results in mild attenuation artifact. Bones: Diffuse osteopenia. Mildly displaced fracture extends transversely through the distal fibular metaphysis. Distal fracture fragment displaced laterally 0.8 cm. Mildly comminuted and displaced fracture at the posterior aspect distal tibia. Primary fracture fragment displaced up to 0.6 cm posteriorly with impaction measuring up to 0.5 cm. Multiple punctate ossific fragments in the tibiotalar joint adjacent to the fracture site. Mildly displaced fracture extends obliquely through the anteromedial aspect distal tibia. Primary fracture fragment displaced anteriorly and inferiorly 0.4 cm. No other discrete displaced fracture visualized. Evaluation for nondisplaced fracture is limited on CT. Moderate to large posterior and plantar calcaneal enthesophytes. Joints: Mild posterior subluxation of the talus relative to the tibial plafond. Small tibiotalar and subtalar joint effusions. Mild degenerative change of the subtalar, talonavicular, and to a lesser extent tarsometatarsal joints. Musculature: No focal fatty atrophy. Evaluation for muscle edema limited on CT. Evaluation of the tendon significantly limited on CT. No evidence of gross tendon entrapment. Other: Mild to moderate circumferential subcutaneous edema throughout the lower leg, hindfoot, and midfoot. IMPRESSION: 1. Mildly comminuted and displaced trimalleolar fracture. 2. Mild posterior subluxation of the talus relative to the tibia. 3. Mildly displaced distal fibular fracture. 4. Small tibiotalar and subtalar joint effusions. 5. Multiple punctate ossific fragments in the tibiotalar joint. [facility]
== END 2018-08-21 10:39 | disposition home or self-care (01) ==
LOC: DI 10:38
PROVIDERS: ATTEND Orthopaedic Surgery Sports Medicine
DX: S82.851A Displaced trimalleolar fracture of right lower leg, initial encounter for closed fracture (principal); S82.831A Other fracture of upper and lower end of right fibula, initial encounter for closed fracture; S93.01XA Subluxation of right ankle joint, initial encounter; M25.471 Effusion, right ankle

== ENCOUNTER 2018-09-20 10:39 | Outpatient (CLI) | payer MEDICARE, OTHER | END 2018-09-20 10:40 | disposition short-term general hospital (02) | LOC: EMS 10:39 | PROVIDERS: ATTEND Surgery | DX: M79.605 Pain in left leg (principal); S51.011A Laceration without foreign body of right elbow, initial encounter; W18.39XA Other fall on same level, initial encounter; Y93.89 Activity, other specified; Y92.002 Bathroom of unspecified non-institutional (private) residence as the place of occurrence of the external cause | CPT/HCPCS: A0425; A0427 ==